=== PATIENT | male | born 1970 | race Caucasian/White ===

== ENCOUNTER 2019-08-09 11:31 | Inpatient (IN) | payer OTHER ==
[~2019-08-09] VITALS: Ht 185.4 cm; Wt 83.9 kg
[2019-08-09 11:41] VITALS: Ht 185.4 cm; Wt 83.9 kg
[2019-08-09 12:27] LABS: BASOPHIL % 0.9 % (0-2); PLATELET COUNT 60 x10^3mcL (130-400); RED CELL DISTRIBUTION WIDTH 14.1 % (11.5-14.5)
[2019-08-09 12:44] LABS: CALCIUM 8.1 mg/dL (8.5-10.1); CARBON DIOXIDE 25.3 mmol/L (21-32); CHLORIDE SERUM 106 mmol/L (98-107); CREATININE SERUM 0.7 mg/dL (0.7-1.3); GFR1 > 60 mL/min; GLUCOSE SERUM 101 mg/dL (74-106); POTASSIUM SERUM 3.7 mmol/L (3.5-5.1); SODIUM SERUM 140 mmol/L (136-145)
[2019-08-09 12:59] LABS: ALBUMIN 3.4 g/dL (3.4-5.0); ALKALINE PHOSPHATASE 161 U/L (46-116); ALT/SGPT 307 U/L (16-63); AST/SGOT 484 U/L (15-37); BILIRUBIN TOTAL 0.94 mg/dL (0.20-1.00); CHOLESTEROL 198 mg/dL (<200); LIPASE 140 IU/L (73-393); MAGNESIUM 1.8 mg/dL (1.8-2.4); T4(THYROXINE) 6.7 ug/dL (4.7-13.3); TOTAL PROTEIN, SERUM 7.5 g/dL (6.4-8.2)
[2019-08-09 13:05] LABS: HDL CHOLESTEROL 84 mg/dL (40-60)
[2019-08-09 14:12] LABS: UA SPECIFIC GRAVITY <=1.005 (1.005-1.035); microscopic required? YES; urine erythrocyte 2+ (NEGATIVE)
[2019-08-09 15:01] LABS: AMPHETAMINE QUAL UR NONE DETECTED (See below)
[2019-08-09 16:32] LABS: PHOSPHOROUS 3.7 mg/dL (2.5-4.9)
[2019-08-09 16:33] LABS: CHOLESTEROL/HDL RATIO 2.4
[2019-08-09 18:58] VITALS: BP 115/78
[2019-08-09 20:52] VITALS: BP 110/63
[2019-08-10 05:29] VITALS: BP 125/79
[2019-08-10 07:53] LABS: ALKALINE PHOSPHATASE 211 U/L (46-116); ALT/SGPT 262 U/L (16-63); AST/SGOT 437 U/L (15-37); BILIRUBIN TOTAL 1.1 mg/dL (0.20-1.00); CALCIUM 8.2 mg/dL (8.5-10.1); CARBON DIOXIDE 24.8 mmol/L (21-32); CHLORIDE SERUM 105 mmol/L (98-107); CREATININE SERUM 0.7 mg/dL (0.7-1.3); GFR1 > 60 mL/min; GLUCOSE SERUM 87 mg/dL (74-106); MAGNESIUM 1.5 mg/dL (1.8-2.4); PHOSPHOROUS 4.6 mg/dL (2.5-4.9); SODIUM SERUM 141 mmol/L (136-145); TOTAL PROTEIN, SERUM 6.8 g/dL (6.4-8.2)
[2019-08-10 08:53] VITALS: BP 130/87
[2019-08-10 12:55] LABS: BAND NEUTROPHIL 0 % (0-10); BASOPHIL 0 % (0-2); MONOCYTE 9 % (0-7); SEGMENTED NEUTROPHILS 66 % (37-75)
[2019-08-10 12:56] LABS: rbc morphology (normal/abnorm) ABNORMAL (NORMAL)
[2019-08-10 12:57] LABS: PLATELET MORPHOLOGY PLATELETS DECREASED
[2019-08-10 13:47] LABS: PLATELET COUNT 33 x10^3mcL (130-400)
[2019-08-10 18:13] VITALS: BP 144/90
[2019-08-10 20:50] VITALS: BP 140/93
== END 2019-08-11 00:50 | disposition left against medical advice (07) | DRG 52 ==
LOC: ED 11:31 → DU 15:02
PROVIDERS: Emergency Medicine; ADMIT Family Medicine; ATTEND Family Medicine
DX: G92 Toxic encephalopathy (principal); D69.6 Thrombocytopenia, unspecified; K72.90 Hepatic failure, unspecified without coma; F17.210 Nicotine dependence, cigarettes, uncomplicated; Y90.9 Presence of alcohol in blood, level not specified; Z53.29 Procedure and treatment not carried out because of patient's decision for other reasons; F10.10 Alcohol abuse, uncomplicated; Z59.0 Homelessness; Z71.6 Tobacco abuse counseling; Z71.41 Alcohol abuse counseling and surveillance of alcoholic
CPT/HCPCS: 83880; 99406; G0378; G0480; J2060; J2405; J3411; J3475; J3490; J7030; J7042; Q0092